=== PATIENT | female | born 1985 | race Two or more races ===

== ENCOUNTER 2018-07-17 11:12 | Day surgery (SDC) | payer OTHER ==
[2018-07-13 15:58] VITALS: BMI 36.6
[2018-07-17] MEDS ORDERED: BUPIVACAINE HCL/PF 0.5% (5MG/ML) 10 ML VIAL ONE (12:26)
[2018-07-17] MEDS ORDERED: ACETAMINOPHEN 325 MG TABLET (FP) PO PRN (12:57)
[2018-07-17] MEDS ORDERED: IBUPROFEN 800 MG/8 ML IJ IVPB PRN (12:57)
--- NOTE | 2018-07-17 12:57 | HP ---
History & Physical Update - History History: No Change - Physical Physical: No Change - Assessment Assessment: No Change - Plan Plan: No Change (No change, agree with H&P from 07/13/18. Plan for laparoscopic ovarian cystectomy.)
[2018-07-17] MEDS ORDERED: LACTATED RINGERS SOLUTION 1,000 ML IV SCH ×2 (13:00→15:30)
[2018-07-17] MEDS ORDERED: PROPOFOL 20 ML ONE (13:03)
[2018-07-17] MEDS ORDERED: SUCCINYLCHOLINE CHLORIDE 200 MG/10 ML VIAL ONE (13:03)
[2018-07-17] MEDS ORDERED: MIDAZOLAM HCL 2 MG/2 ML SINGLE DOSE VIAL ONE (13:03)
[2018-07-17] MEDS ORDERED: ROCURONIUM BROMIDE 50 MG/5 ML VIAL ONE (13:03)
[2018-07-17] MEDS ORDERED: NEOSTIGMINE METHYLSULFATE 0.5 MG/ML - 10 ML MDV ONE (14:01)
[2018-07-17] MEDS ORDERED: BUPIVACAINE HCL/PF 0.5% (5MG/ML) 10 ML VIAL IJ ONE (14:09)
[2018-07-17] MEDS ORDERED: ONDANSETRON 4 MG/2 ML VIAL IVPUSH PRN (15:19)
--- NOTE | 2018-07-17 15:19 | OP ---
Operative Note - Note: Operative Date: 07/17/18 ([id number]) Pre-Operative Diagnosis: pelvic pain, left dermoid cyst Operation: laparoscopic left ovarian cystectomy, lysis of adhesions Findings: omental adhesions to anterior abdominal wall in the midline Post-Operative Diagnosis: Same as Pre-op Surgeon: Kaylyn Stafford Log Preparer: Chucky Hoover Anesthesiologist/SAMPLE WRAPPER: Kana Velazquez Anesthesia: General Specimens Removed: left ovarian dermoid cyst X 2 Estimated Blood Loss (mls): 25 Drains, Volume Out (mls): 150 (urine) Fluid Volume Replaced (mls): 800 Operative Report Dictated: Yes
[2018-07-17] MEDS ORDERED: ACETAMINOPHEN 1000 MG/100 ML VIAL (NON FORMULARY) IVPB ONE (15:20)
--- NOTE | 2018-07-17 15:44 | SURG ---
Surgery Network Security Engineer Note Network Security Engineer: Chucky Hoover PA-C Date of Service: 07/17/18 Diagnosis: Left ovarian cyst and abdominal adhesions Procedure: Laproscopic lysis of adhesions and Left ovarian cystectomy I was present for the entirety of the operative procedure. For further detail, please refer to operative report.
[2018-07-17] MEDS ORDERED: IBUPROFEN 800 MG/8 ML IJ IVPB ONE (16:09)
[2018-07-17] MEDS ORDERED: oxyCODONE HCL 5 MG TABLET PO ONE ×2 (16:30→17:40)
[2018-07-17 17:21] VITALS: TEMP 98.4
[2018-07-17] MEDS ORDERED: oxyCODONE HCL 5 MG TABLET ONE (17:37)
[2018-07-17 18:40] VITALS: BP 108/59; PULSE 90
--- NOTE | 2018-07-17 20:51 | OP ---
DATE OF OPERATION: 07/17/2018 PREOPERATIVE DIAGNOSIS: Pelvic pain, left ovarian dermoid cyst. POSTOPERATIVE DIAGNOSIS: Pelvic pain, left ovarian dermoid cyst. Intraabdominal omental adhesions to the anterior abdominal wall. PROCEDURE: Laparoscopic ovarian cystectomy and lysis of adhesions. SURGEON: Kaylyn Stafford D.O. PRESIDENT CELEBRITY ACQUISTION: Taylor Karimi ANESTHESIOLOGIST: Paris Velazquez M.D. ANESTHESIA: General. SPECIMENS REMOVED: Left ovarian dermoid cyst x2. ESTIMATED BLOOD LOSS: 25 mL. COMPLICATIONS: None. DISPOSITION: Stable to PACU. COUNTS: Sponge, needle, instrument counts were reported to be correct at the end of the case. BRIEF HISTORY AND PROCEDURE: Patient is a 33-year-old female who has been evaluated for pelvic pain and on ultrasound examination, MRI was found to have a bilobed left dermoid cyst measuring 4 cm in largest diameter. Patient was counseled about her options, and she would like to undergo laparoscopic removal of the ovarian cyst. The patient was consented for the procedure in the office and consents were reconfirmed upon admission to the hospital on July 17, 2018. The patient was taken back to the operating room. She was given general anesthesia and placed in the dorsal lithotomy position. A Dykes catheter was placed under sterile conditions. A 5-mm skin incision was created in the umbilicus, and a Veress needle was placed intraabdominally. The abdomen was insufflated with CO2 gas, and a 5-mm trocar was placed into the abdomen after inserted, and then after confirmation of intraabdominal placement, it was noted there were dense omental adhesions to the anterior abdominal wall. At this time, a left lower quadrant 5-mm port and a right lower quadrant 10-mm port were placed under direct visualization without difficulty, and at this point using the harmonic device, the omental adhesions were dissected and removed to the point of being able to proceed with the pelvic surgery. After the ovarian cyst was identified and elevated out of the pelvis, an incision was made what appeared to be the intersection of 2 dermoid cysts and 1 dermoid cyst was able to be peeled away with blunt dissection without difficulty. At this point, the second dermoid cyst was noted to be within the ovarian stroma, and the cyst was grasped and peeled away from its attachment to the ovarian stroma bluntly. This was done without difficulty. Both portions of the dermoid cyst were then placed in an EndoCatch bag which was inserted through the 10-mm trocar. The specimen was removed from the abdomen without difficulty. Copious suction and irrigation was completed of the pelvis until all surgical sites were clean, and hemostasis was achieved on the left ovarian surgical bed with harmonic device. Excellent hemostasis was achieved. Inspection of all the trocar sites revealed no evidence of intraabdominal bleeding. The 10-mm trocar was closed with the Devin-Javier device using 0 Vicryl suture and a single interrupted suture. The remaining trocars were inspected, no bleeding was appreciated from the trocar sites. All trocars were removed. Abdomen was desufflated. The abdominal incisions were reapproximated using 4-0 Biosyn subcuticularly and Dermabond was applied. Marcaine was injected subcutaneously and the sponge, needle, and instrument counts were correct. The patient tolerated the procedure well and was recovering in stable condition in the PACU at the time of this dictation. KAYLYN STAFFORD DO /[id number]
--- NOTE | 2018-07-19 13:04 | PATH ---
Surgical Pathology Report Patient Name: ANA LOPEZ [facility]. Rec. #: [id number] /Age/Gender: 1985 (Age: 33) / F Account: [id number] Location: AMBULATORY SURG Taken: 07/17/2018 Received: 07/18/2018 Reported: 07/19/2018 Physicians: Kaylyn Stafford M.D. Specimen(s) Received LEFT OVARIAN CYST Clinical History Ovarian cyst, abdominal pain Final Diagnosis LEFT OVARY, DERMOID CYST, EXCISION: OVARIAN TISSUE WITH MATURE CYSTIC TERATOMA. Electronically Signed Elsa Burgos M.D. Gross Description Received in formalin labeled "left ovarian dermoid cyst," are 2 portions of focally disrupted cystic structures measuring 3.4 x 2.9 x 1.1 cm and 4.5 x 4.0 x 2.0 cm. The outer surfaces are echols romo and smooth. Sectioning reveals echosl sebaceous material, hair and adipose tissue within the lumen of both cystic structures. Industrial Trainer sections are submitted in 5 cassettes. /07/18/2018 saudi/07/18/2018
== END 2018-07-17 18:40 | disposition home or self-care (01) ==
LOC: JASUSAT 11:12
PROVIDERS: ATTEND Obstetrics & Gynecology
PROC: 0UB14ZZ Excision of Left Ovary, Percutaneous Endoscopic Approach (ICD-10-PCS; principal; 2018-07-17 13:30)
DX: N83.202 Unspecified ovarian cyst, left side (principal); K66.0 Peritoneal adhesions (postprocedural) (postinfection)
CPT/HCPCS: 36415; 84703; 86850; 86900; 86901; 88307-TC; 94760; J0131